=== PATIENT | male | born 1985 | race Caucasian/White ===

== ENCOUNTER 2017-01-22 06:44 | Inpatient (IN) | payer SELFPAY ==
[2017-01-22] MEDS ORDERED: NORMAL SALINE 1000 ML 1,000 ML IV ONE ×2 (06:52)
[2017-01-22] MEDS ORDERED: LORAZEPAM INJ 2 MG/1 ML VIAL IV ONE (06:55)
--- NOTE | 2017-01-22 07:04 | ER Document Report ---
ED General - General Stated Complaint: ALTERED MENTAL STATUS TRAVEL OUTSIDE OF THE [place] IN LAST 30 DAYS: No - HPI Patient complains to provider of: overdose Notes: Patient coming in today after an overdose of Robitussin or dextromethorphan. Patient states he normally drinks 1 bottle of Robitussin for a high however tonight drinks 3. Otherwise patient is able to communicate the does have a history of a CVA in the past with some deficits of the right upper extremity. 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 Otherwise history is limited patient is having periods of apnea however is easily arousable - Related Data Allergies/Adverse Reactions: No Known Allergies Allergy (Verified 01/22/17 07:42) Home Medications: Current Home Medications No Home Medications 01/22/17 [History] Past Medical History - Social History Smoking Status: Unknown if Ever Smoked Family History: Reviewed & Not Pertinent - Past Medical History Cardiac Medical History: Reports: Hx Hypercholesterolemia, Hx Hypertension Psychiatric Medical History: Reports: Hx Depression Review of Systems - Review of Systems Notes: Overdose altered mental status Physical Exam - Vital signs Vitals: Temp Resp Pulse Ox 98.1 F 15 70 L 01/22/17 06:46 01/22/17 06:46 01/22/17 06:46 Interpretation: Normal - General General appearance: Appears well, Alert - HEENT Head: Normocephalic, Atraumatic Eyes: Normal Conjunctiva: Normal Cornea: Normal Pupils: Pinpoint Mucous membranes: Dry Neck: Normal - Respiratory Respiratory status: No respiratory distress Chest status: Nontender Breath sounds: Rhonchi Chest palpation: Normal - Cardiovascular Rhythm: Regular Heart sounds: Normal auscultation Murmur: No - Abdominal Inspection: Normal Distension: No distension Bowel sounds: Normal Tenderness: Nontender Organomegaly: No organomegaly - Back Back: Normal, Nontender - Extremities General upper extremity: Nontender, Normal color, Normal ROM, Normal temperature. 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 No: Michelle's sign - Neurological Neuro grossly intact: Yes [place] Coma Scale Eye Opening: Spontaneous Rk Coma Scale Verbal: Confused [place] Coma Scale Motor: Obeys Commands [place] Coma Scale Total: 14 Speech: Normal Motor strength normal: LUE, RUE, LLE, RLE Sensory: Normal - Psychological Associated symptoms: Normal affect, Normal mood - Skin Skin Temperature: Warm Skin Moisture: Dry Skin Color: Normal Course - Re-evaluation Re-evalutation: 01/22/17 07:52 Initially patient does admit to taking 3 bottles of the fourth and and is somewhat agitated upon his arrival concern for possible Rebetron tripping however once patient has been observed in the ER for some time does have some periods of apnea states are pinpoint patient will be given a dose of Narcan. After Narcan patient is more awake he does admit now to drinking alcohol also taken Imodium. Patient was to be a polysubstance abuse patient. Patient's laboratory does show some acidosis and hypercapnia. More likely this is due to decreased respirations from the Imodium. Patient will be continued monitor repeat labs. If the hypercapnia does not improve more likely patient will be admitted 01/22/17 09:10 Discuss case with poison control recommended observation until approximately 1200 our till patient is back to baseline. 01/22/17 10:30 Patient is again is requiring Narcan stay awake. Patient now Jenniffer took approximately 200 tablets of Imodium. Patient's history does continue to change at this time I will discuss with hospitals about made the patient more likely patient will need ICU until he is back to baseline. - Vital Signs Vital signs: Temp Pulse Resp BP Pulse Ox 97.3 F 18 128/88 H 99 01/22/17 14:01 01/22/17 14:01 01/22/17 14:01 01/22/17 14:01 - Laboratory Result Diagrams: 01/22/17 06:46 01/22/17 06:46 Laboratory results interpreted by me: 01/22/17 01/22/17 01/22/17 06:46 06:46 06:46 WBC 15.8 H MCV 100 H MCH 33.6 H Seg Neuts % (Manual) 82 H Band Neutrophils % 2 L Lymphocytes % (Manual) 4 L Abs Neuts (Manual) 13.3 H Abs Monocytes (Manual) 1.9 H VBG pH 7.16 L* VBG pCO2 72.9 H* Sodium 145.9 H Potassium 5.4 H Creatinine 1.58 H Est GFR (Non-Af Amer) 51 L Glucose 200 H Total Protein 8.3 H Salicylates < 1.0 L Acetaminophen < 10 L 01/22/17 10:40 WBC MCV MCH Seg Neuts % (Manual) Band Neutrophils % Lymphocytes % (Manual) Abs Neuts (Manual) Abs Monocytes (Manual) VBG pH 7.18 L* VBG pCO2 82.0 H* Sodium Potassium Creatinine Est GFR (Non-Af Amer) Glucose Total Protein Salicylates Acetaminophen Critical Care Note - Critical Care Note Total time excluding time spent on procedures (mins): 35 Comments: Multiple evaluations due to patient with an overdose Discharge - Discharge Clinical Impression: overdose of Imodium, Respiratory depression, hypoxia with hypercapnia Dextromethorphan overdose Qualifiers: Encounter type: initial encounter Injury intent: undetermined intent Qualified Code(s): T48.3X4A - Poisoning by antitussives, undetermined, initial encounter Admitting Provider: Hospitalist - niko Unit Admitted: ICU
[2017-01-22 07:11] LABS: VENOUS BLOOD BASE EXCESS -5.4 mmol/L; VENOUS BLOOD HCO3 25.2 mmol/L (20-32)
[2017-01-22] MEDS ORDERED: NALOXONE HCL INJ/PF 0.4 MG/1 ML SDV IV ONE (07:11)
[2017-01-22 07:14] LABS: HEMATOCRIT 44.4 % (37.9-51.0); HGB HCT DIFFERENCE 0.6; MEAN CORPUSCULAR HEMOGLOBIN 33.6 pg (27.0-33.4); MEAN CORPUSCULAR HGB CONC 33.7 g/dL (32.0-36.0); MEAN CORPUSCULAR VOLUME 100 fl (80-97); RED BLOOD COUNT 4.46 10^6/uL (4.35-5.55); RED CELL DISTRIBUTION WIDTH 13.4 % (11.5-14.0); WHITE BLOOD COUNT 15.8 10^3/uL (4.0-10.5)
[2017-01-22 07:32] LABS: ALANINE AMINOTRANSFERASE 28 U/L (21-72); ALKALINE PHOSPHATASE 68 U/L (38-126); ASPARTATE AMINO TRANSFERASE 43 U/L (17-59); BILIRUBIN,DIRECT 0.4 mg/dL (0.0-0.4); BILIRUBIN,TOTAL 0.5 mg/dL (0.2-1.3); BLOOD UREA NITROGEN 15 mg/dL (7-20); CALCIUM 9.3 mg/dL (8.4-10.2); CHLORIDE 105 mmol/L (98-107); CREATININE RESULT 1.58 mg/dL (0.52-1.25); GLUCOSE 200 mg/dL (75-110); TOTAL PROTEIN 8.3 g/dL (6.3-8.2); VENOUS BLOOD PCO2 72.9 mmHg (35-63); VENOUS BLOOD PH 7.16 (7.30-7.42)
[2017-01-22 07:33] LABS: ALCOHOL < 10 mg/dL (NONE DETECTED)
[2017-01-22 07:39] LABS: ANION GAP 18 (5-19); CARBON DIOXIDE 23 mmol/L (22-30); POTASSIUM 5.4 mmol/L (3.6-5.0); SODIUM 145.9 mmol/L (137-145)
[2017-01-22 07:46] LABS: BAND NEUTROPHILS % (MANUAL) 2 % (3-5); BASOPHILS % (MANUAL) 0 % (0-2); EOSINOPHILS % (MANUAL) 0 % (0-6); LYMPHOCYTES % (MANUAL) 4 % (13-45); TOTAL CELLS COUNTED 100
[2017-01-22 07:48] LABS: RBC MORPHOLOGY COMMENT NORMO-CYTIC/CHROMIC
--- NOTE | 2017-01-22 08:43 | EKG REPORT ---
SEVERITY:- NORMAL ECG - SINUS RHYTHM ST ELEV, PROBABLE NORMAL EARLY REPOL PATTERN : Confirmed by: Atul Amin 22-Jan-2017 08:42:47
[2017-01-22 08:44] LABS: URINE BARBITURATES SCREEN NEGATIVE; URINE METHADONE SCREEN NEGATIVE; URINE OPIATES LOW NEGATIVE; URINE PHENCYCLIDINE SCREEN UNCONFIRMED POSITIVE
[2017-01-22 08:49] LABS: APPEARANCE,URINE CLEAR; BILIRUBIN,URINE NEGATIVE (NEGATIVE); GLUCOSE, URINE NEGATIVE (NEGATIVE); KETONES,URINE NEGATIVE (NEGATIVE); LEUKOCYTE ESTERASE,URINE NEGATIVE (NEGATIVE); NITRITE,URINE NEGATIVE (NEGATIVE); PROTEIN,URINE NEGATIVE (NEGATIVE); URINE SPECIFIC GRAVITY 1.009; UROBILINOGEN,URINE NEGATIVE mg/dL (<2.0)
[2017-01-22] MEDS ORDERED: NALOXONE HCL INJ 2 MG/2 ML DISP.SYRIN IV ONE (10:18)
[2017-01-22 10:58] LABS: VENOUS BLOOD HCO3 29.9 mmol/L (20-32)
[2017-01-22 11:00] LABS: VENOUS BLOOD PH 7.18 (7.30-7.42)
[2017-01-22] MEDS ORDERED: NORMAL SALINE 500 ML with NALOXONE HCL 2 MG IV PRN ×2 (11:00)
[2017-01-22] MEDS ORDERED: NALOXONE HCL INJ 2 MG/2 ML DISP.SYRIN ONE (11:12)
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
[2017-01-22] MEDS: NORMAL SALINE 1000 ML 1,000 ML IV PRN (12:50)
[2017-01-23] MEDS: NORMAL SALINE 500 ML with NALOXONE HCL 2 MG IV PRN ×6 (01:01→13:12)
[2017-01-23] MEDS: NORMAL SALINE 1000 ML 1,000 ML IV PRN ×2 (05:38→18:26)
[2017-01-23 06:08] LABS: ABSOLUTE LYMPHOCYTES (AUTO) 2.4 10^3/uL (0.5-4.7); ABSOLUTE MONOCYTES (AUTO) 0.7 10^3/uL (0.1-1.4); BASOPHILS % (AUTO) 0.4 % (0-2); EOSINOPHILS % (AUTO) 0.2 % (0-6); HEMATOCRIT 35.1 % (37.9-51.0); HGB HCT DIFFERENCE 1.8; LYMPHOCYTES % (AUTO) 23.4 % (13-45); MEAN CORPUSCULAR HEMOGLOBIN 34.5 pg (27.0-33.4); MEAN CORPUSCULAR VOLUME 98 fl (80-97); MONOCYTES % (AUTO) 7.1 % (3-13); RED BLOOD COUNT 3.56 10^6/uL (4.35-5.55); RED CELL DISTRIBUTION WIDTH 13.2 % (11.5-14.0); SEGMENTED NEUTROPHILS % (AUTO) 68.9 % (42-78); WHITE BLOOD COUNT 10.1 10^3/uL (4.0-10.5)
[2017-01-23 06:29] LABS: ALANINE AMINOTRANSFERASE 48 U/L (21-72); ALBUMIN 3.3 g/dL (3.5-5.0); ALKALINE PHOSPHATASE 52 U/L (38-126); ANION GAP 5 (5-19); ASPARTATE AMINO TRANSFERASE 121 U/L (17-59); BILIRUBIN,DIRECT 0.2 mg/dL (0.0-0.4); BILIRUBIN,TOTAL 0.5 mg/dL (0.2-1.3); BLOOD UREA NITROGEN 8 mg/dL (7-20); CALCIUM 8.3 mg/dL (8.4-10.2); CARBON DIOXIDE 26 mmol/L (22-30); CHLORIDE 111 mmol/L (98-107); CREATININE RESULT 0.63 mg/dL (0.52-1.25); GLUCOSE 85 mg/dL (75-110); SODIUM 142.3 mmol/L (137-145); TOTAL PROTEIN 5.7 g/dL (6.3-8.2)
[2017-01-23 06:56] LABS: POTASSIUM 3.6 mmol/L (3.6-5.0)
[2017-01-23 07:57] LABS: HEMOGLOBIN 12.3 g/dL (13.5-17.0)
[2017-01-23] MEDS: ENOXAPARIN SODIUM INJ 40 MG/0.4 ML DISP.SYRIN SUBCUT SCH (08:47)
--- NOTE | 2017-01-23 19:38 | EKG REPORT ---
SEVERITY:- NORMAL ECG - SINUS RHYTHM : Confirmed by: Lisha Chin MD 23-Jan-2017 19:37:10
[2017-01-24] MEDS: NORMAL SALINE 1000 ML 1,000 ML IV PRN (08:10)
[2017-01-24] MEDS: ENOXAPARIN SODIUM INJ 40 MG/0.4 ML DISP.SYRIN SUBCUT SCH (09:54)
[2017-01-24 15:49] LABS: ABSOLUTE EOSINOPHILS # (AUTO) 0.1 10^3/uL (0.0-0.6); ABSOLUTE LYMPHOCYTES (AUTO) 2.4 10^3/uL (0.5-4.7); ABSOLUTE MONOCYTES (AUTO) 0.6 10^3/uL (0.1-1.4); ABSOLUTE NEUT (AUTO) 5.3 10^3/uL (1.7-8.2); BASOPHILS % (AUTO) 0.4 % (0-2); EOSINOPHILS % (AUTO) 0.7 % (0-6); HEMOGLOBIN 13.3 g/dL (13.5-17.0); HGB HCT DIFFERENCE 1.9; LYMPHOCYTES % (AUTO) 28.7 % (13-45); MEAN CORPUSCULAR HEMOGLOBIN 33.7 pg (27.0-33.4); MEAN CORPUSCULAR HGB CONC 34.9 g/dL (32.0-36.0); MEAN CORPUSCULAR VOLUME 97 fl (80-97); MONOCYTES % (AUTO) 6.7 % (3-13); RED BLOOD COUNT 3.94 10^6/uL (4.35-5.55); RED CELL DISTRIBUTION WIDTH 12.7 % (11.5-14.0); SEGMENTED NEUTROPHILS % (AUTO) 63.5 % (42-78); WHITE BLOOD COUNT 8.4 10^3/uL (4.0-10.5)
[2017-01-24 16:06] LABS: ANION GAP 5 (5-19); BLOOD UREA NITROGEN 4 mg/dL (7-20); CALCIUM 9.2 mg/dL (8.4-10.2); CARBON DIOXIDE 28 mmol/L (22-30); CHLORIDE 107 mmol/L (98-107); CREATININE RESULT 0.65 mg/dL (0.52-1.25); GLUCOSE 77 mg/dL (75-110); POTASSIUM 3.7 mmol/L (3.6-5.0); SODIUM 140.3 mmol/L (137-145)
--- NOTE | 2017-01-24 16:50 | PDOC PROGRESS REPORT ---
Subjective Progress Note for:: 01/23/17 Subjective:: Subjective this is a follow-up visit for overdose with Imodium. Patient states that he took 202 mg tablets of Imodium in order to get "high". He states that he had a former girlfriend who used to get high and mentioned that you could get high off of this. He read information on [employer] stating that he could fill all his opioid receptors this way. Patient is currently being treated with naloxone drip. He states he has concerned that he hasn't had a bowel movement. Poison control was contacted and recommended repeat EKG. He currently denies any chest pain or shortness of breath. And states that he feels much better. Patient admits to also using [id number] cough syrups in order to get high. Apparently he also confessed to the nurses staff down in the ED that he huffs gasoline or oil. He currently denies any suicidal ideation or homicidal ideation. He states that he did this simply to get high and was not trying to hurt himself. Physical Exam Vital Signs: Temp Pulse Resp BP Pulse Ox 98.7 F 17 131/95 H 100 01/23/17 13:01 01/23/17 16:15 01/23/17 16:15 01/23/17 16:01 Intake & Output 01/22/17 01/23/17 01/24/17 06:59 06:59 06:59 Intake Total 100 317 Output Total 375 850 Balance -275 -533 General appearance: PRESENT: no acute distress, well-developed, well-nourished Head exam: PRESENT: atraumatic, normocephalic Eye exam: PRESENT: conjunctiva pink. ABSENT: scleral icterus Mouth exam: PRESENT: moist Respiratory exam: PRESENT: clear to auscultation hosea. ABSENT: rales, rhonchi, wheezes Cardiovascular exam: PRESENT: RRR. ABSENT: diastolic murmur, gallop, rubs, systolic murmur GI/Abdominal exam: PRESENT: normal bowel sounds, soft. ABSENT: distended, tenderness Neurological exam: PRESENT: alert, awake, oriented to person, oriented to place , oriented to time, oriented to situation, CN II-XII grossly intact Results Laboratory Results: 01/23/17 05:54 01/23/17 05:54 01/23/17 01/23/17 05:54 05:54 WBC 10.1 RBC 3.56 L Hgb 12.3 L D Hct 35.1 L MCV 98 H MCH 34.5 H MCHC 35.0 RDW 13.2 Plt Count 156 Seg Neutrophils % 68.9 Lymphocytes % 23.4 Monocytes % 7.1 Eosinophils % 0.2 Basophils % 0.4 Absolute Neutrophils 7.0 Absolute Lymphocytes 2.4 Absolute Monocytes 0.7 Absolute Eosinophils 0.0 Absolute Basophils 0.0 Sodium 142.3 Potassium 3.6 D Chloride 111 H Carbon Dioxide 26 Anion Gap 5 BUN 8 Creatinine 0.63 Est GFR ( Amer) > 60 Est GFR (Non-Af Amer) > 60 Glucose 85 Calcium 8.3 L Total Bilirubin 0.5 AST 121 H ALT 48 Alkaline Phosphatase 52 Total Protein 5.7 L Albumin 3.3 L Impressions: Chest X-Ray 01/22/17 07:00 IMPRESSION: Small right basilar scar, atelectasis, or effusion. Assessment & Plan - Diagnosis (1) Acute respiratory acidosis Is this a current diagnosis for this admission?: YesPlan: Resolved (2) Drug overdose Qualifiers: Encounter type: initial encounter Is this a current diagnosis for this admission?: YesPlan: Discontinue naloxone drip. At this point the patient is awake and able to likely tolerate a regular diet. We can discontinue orders to go to the ICU. He can go to [facility] [place] care. Repeat EKG as recommended by poison control. - Time Time Spent with patient: 15-24 minutes - Inpatient Certification Medical Necessity: Risk of Diagnosis Which Will Require Inpatient Eval/Care/ Monitoring
[2017-01-24 16:55] VITALS: BP 130/73
== END 2017-01-24 18:08 | disposition home or self-care (01) | DRG 918 ==
LOC: ER 06:44 → UNDOADMIN 11:05 → EH 11:05 → 3W 01-23 22:30
DX: T47.6X1A Poisoning by antidiarrheal drugs, accidental (unintentional), initial encounter (principal); E87.2 Acidosis; I10 Essential (primary) hypertension; F32.9 Major depressive disorder, single episode, unspecified; E78.00 Pure hypercholesterolemia, unspecified; R06.89 Other abnormalities of breathing; E78.5 Hyperlipidemia, unspecified; F17.210 Nicotine dependence, cigarettes, uncomplicated; Z86.73 Personal history of transient ischemic attack (TIA), and cerebral infarction without residual deficits; Z87.828 Personal history of other (healed) physical injury and trauma; Z82.3 Family history of stroke
CPT/HCPCS: 36415; 51701; 71010; 80048; 80053; 80307; 81001; 82803; 83690; 83735; 85025; 93005; 93010; 96361; 96374; 96376; 99291; J2310; J3490; J7030; J7040